=== PATIENT | male | born 1955 | race Caucasian/White ===

== ENCOUNTER 2017-03-15 10:07 | Day surgery (SDC) | payer BC ==
[~2017-03-15 10:07] MED LIST: TETRACAINE 0.5% OPHTH 1 DOSE AFFEYE ONE; VIGAMOX 0.5% OPHTH 1 DOSE AFFEYE ONE
[2017-03-15] MEDS ORDERED: VERSED ONE (10:08)
[2017-03-15] MEDS ORDERED: NS 500 ML IV 500 ML IV ONE (10:09)
[2017-03-15] MEDS ORDERED: VIGAMOX 0.5% OPHTH 1 DOSE AFFEYE ONE ×4 (10:10→13:51)
[2017-03-15] MEDS ORDERED: PROLENSA OPHTH 1 DOSE AFFEYE ONE (10:16)
[2017-03-15] MEDS ORDERED: ALPHAGAN-P OPHTH 1 DOSE AFFEYE ONE (10:17)
[2017-03-15] MEDS ORDERED: AK-DILATE 2.5% OPHTH 1 DOSE OP ONE ×3 (10:18→10:20)
[2017-03-15] MEDS ORDERED: CYCLOGYL 1% OPHTH 1 DOSE OP ONE ×3 (10:18→10:20)
[2017-03-15] MEDS ORDERED: MYDRIACIL OPHTH 1 DOSE AFFEYE ONE ×3 (10:18→10:20)
[2017-03-15] MEDS ORDERED: TETRACAINE 0.5% OPHTH 1 DOSE AFFEYE ONE ×3 (13:28→13:38)
[2017-03-15] MEDS ORDERED: BETADINE OPHTH SOLN 5% EACHEYE ONE (13:28)
[2017-03-15] MEDS ORDERED: BSS OPHTH (PLAIN) 500 ML with VANCOMYCIN HCL 500 MG VIAL 25 MG, ADRENALINE CHL INJ 1 MG IR ONE ×3 (13:38)
[2017-03-15] MEDS ORDERED: DUOVISC IO ONE (13:38)
[2017-03-15] MEDS ORDERED: XYLOCAINE-MPF 1% IJ ONE (13:38)
[2017-03-15] MEDS ORDERED: ADRENALINE CHL INJ IJ ONE (13:38)
[2017-03-15 14:06] VITALS: BP 153/70
== END 2017-03-15 14:06 | disposition home or self-care (01) ==
LOC: SURG1 10:07
PROVIDERS: ATTEND Ophthalmology
PROC: 08DK3ZZ Extraction of Left Lens, Percutaneous Approach (ICD-10-PCS; principal; 2017-03-15 17:15)
PROC: 08RK3JZ Replacement of Left Lens with Synthetic Substitute, Percutaneous Approach (ICD-10-PCS; principal; 2017-03-15 17:15)
DX: H25.12 Age-related nuclear cataract, left eye (principal); H25.012 Cortical age-related cataract, left eye; H25.042 Posterior subcapsular polar age-related cataract, left eye
CPT/HCPCS: A4217; J0170; J2250; J3370